=== PATIENT | male | born 1965 | race African-American/Black ===

== ENCOUNTER 2020-06-08 07:41 | Day surgery (SDC) | payer BC, OTHER ==
[2020-06-06 12:18] VITALS: BMI 24.6
[~2020-06-08 07:41] MED LIST: LACTATED RINGERS 1,000 ML IV SCH
[2020-06-08 08:11] VITALS: RESP 16; TEMP 97.3
[2020-06-08] MEDS ORDERED: LIDOCAINE 1% (10MG/ML) FOR IV START INTRADERMA ONE (08:19)
[2020-06-08] MEDS ORDERED: MIDAZOLAM 2 MG/2 ML VIAL ONE (09:06)
[2020-06-08] MEDS ORDERED: PROPOFOL 10 MG/ML 20 ML VIAL IV ONE (09:06)
[2020-06-08] MEDS ORDERED: fentaNYL (PF) 50 MCG/ML 2 ML AMP ONE (09:06)
--- NOTE | 2020-06-08 09:11 | P.GSHP ---
History of Present Illness H&P Date: 06/08/20 Chief Complaint: Screening colonoscopy This a 54-year-old male who presents today for screening colonoscopy. Patient denies a significant GI complaints. Past Medical History Past Medical History: Hyperlipidemia, Hypertension Additional Past Medical History / Comment(s): lt side numbness History of Any Multi-Drug Resistant Organisms: None Reported Past Surgical History: No Surgical Hx Reported Past Anesthesia/Blood Transfusion Reactions: No Reported Reaction Smoking Status: Current every day smoker Medications and Allergies Home Medications Medication Instructions Recorded Confirmed Type Atorvastatin [Lipitor] 40 mg PO DAILY 06/06/20 06/08/20 History lisinopriL 40 mg PO DAILY 06/06/20 06/08/20 History Allergies Allergy/AdvReac Type Severity Reaction Status Date / Time No Known Allergies Allergy Verified 01/21/14 17:47 Surgical - Exam Vital Signs Temp Pulse Resp BP Pulse Ox 97.3 F L 72 16 169/97 99 06/08/20 08:09 06/08/20 08:09 06/08/20 08:09 06/08/20 08:09 06/08/20 08:09 - General well developed, well nourished, no distress - Eyes PERRL - ENT normal pinna - Neck no masses - Respiratory normal expansion - Cardiovascular Rhythm: regular - Abdomen Abdomen: soft, non tender Assessment and Plan Assessment: We'll perform screening colonoscopy
--- NOTE | 2020-06-08 09:20 | P.OP ---
Date of Procedure: 06/08/20 Preoperative Diagnosis: Screening colonoscopy Postoperative Diagnosis: Normal colonoscopy Procedure(s) Performed: Colonoscopy Anesthesia: MAC Surgeon: Demian Pichardo Pathology: none sent Condition: stable Disposition: PACU Description of Procedure: PROCEDURE: The patient was placed on the endoscopy table in the lateral position. Digital rectal examination was performed which revealed no abnormalities. The prostate was symmetrical without nodules. Flexible colonoscope was then placed in the patient's anus and passed throughout the entire colon. The ileocecal valve was visualized. The cecum, ascending, transverse, descending and sigmoid colon were normal. The rectum was normal as well. There were no masses, polyps or diverticula noted in the entire colon. SUMMARY OF FINDINGS: Normal colonoscopy.
[2020-06-08 09:45] VITALS: BP 165/87; PULSE 70
== END 2020-06-08 10:09 | disposition home or self-care (01) ==
LOC: ORWHC2ENDO 07:41
PROVIDERS: ATTEND Surgery
DX: Z12.11 Encounter for screening for malignant neoplasm of colon (principal); E78.5 Hyperlipidemia, unspecified; I10 Essential (primary) hypertension; F17.200 Nicotine dependence, unspecified, uncomplicated; Z79.899 Other long term (current) drug therapy
CPT/HCPCS: G0121; J2250; J3010; J2704; 45378